=== PATIENT | female | born 1960 | race Caucasian/White ===

== ENCOUNTER 2024-07-14 00:01 | Emergency (ER) | payer OTHER ==
[2024-07-14] MEDS ORDERED: Ondansetron PF 4 MG/2 ML Vial ONE (00:33)
[2024-07-14] MEDS ORDERED: Morphine 4 MG/ML VIAL ONE (00:33)
[2024-07-14 00:39] LABS: #Basophils Less than 0.03 10x3/uL (0.0-0.2); #Eosinophils 0.09 10x3/uL (0.0-0.5); #Monocytes 0.68 10x3/uL (0.0-1.1); %Basophils 0.4 % (0.0-2.0); %Eosinophils 1.6 % (0.0-6.0); %Lymphocytes 15.9 % (18.0-47.0); %Monocytes 12.2 % (0.0-10.0); %Neutrophils 69.7 % (40.0-75.0); Hematocrit 35.9 % (34.9-44.5); Hemoglobin 11.8 g/dL (12.0-15.5); Mean Corpuscular HGB CONC 32.9 g/dL (32.0-36.0); Mean Corpuscular Hemoglobin 29.5 pg (27.0-33.0); Mean Corpuscular Volume 89.8 fL (81.6-98.3); Mean Platelet Volume 10.9 fL (7.4-10.4); Platelet Count 213 10x3/uL (150-450); RBC Distribution Width 12.9 % (11.5-14.5); White Blood Cell (WBC) Count 5.59 10x3/uL (3.5-10.5)
[2024-07-14 00:50] LABS: ALT (SGPT) 87 U/L (8-55); AST (SGOT) 105 U/L (5-34); Albumin 3.8 g/dL (3.4-4.8); Alkaline Phosphatase 168 U/L (40-110); Anion Gap 13 mmol/L (10-20); BUN (Urea Nitrogen) 18 mg/dL (9.8-20.1); Bilirubin, Total 0.3 mg/dL (0.2-1.2); Calc. Creatinine Clearance 0 mL/min (70-130); Calcium 9.8 mg/dL (7.8-10.44); Carbon Dioxide 25 mmol/L (23-31); Chloride 102 mmol/L (98-107); Estimated GFR 58; Globulin 2.9 g/dL (2.4-3.5); Glucose 161 mg/dL (80-115); Protein, Total 6.7 g/dL (5.8-8.1); Sodium 136 mmol/L (136-145)
[2024-07-14 00:54] LABS: Troponin I Less than 0.010 ng/mL (< 0.028)
[2024-07-14] MEDS ORDERED: Lidocaine Viscous Sol 2% 15 ml UD Cup ONE (02:01)
[2024-07-14] MEDS ORDERED: Mag-Al 1200 mg/1200 mg/30 ML UDCUP ONE (02:01)
[2024-07-14 02:40] LABS: Troponin I Less than 0.010 ng/mL (< 0.028)
[2024-07-14 09:37] LABS: HBsAg Index 1.25 S/CO (0-0.99)
[2024-07-14 13:25] LABS: Hep A IgM AB NONREACTIVE (NonReactive); Hep A IgM S/CO 0.19 S/CO (0-0.79); Hep B Core IgM Index 0.06 S/CO (0-0.79); Hep C IgG Ab NONREACTIVE S/CO (NonReactive); Hep C Index 0.11 S/CO (0-0.79); Hepatitis B Core IgM Abs NONREACTIVE S/CO (NonReactive)
== END 2024-07-14 02:56 | disposition home or self-care (01) ==
LOC: CSHERS 00:01
DX: R10.13 Epigastric pain (principal); R07.2 Precordial pain; I10 Essential (primary) hypertension; E03.9 Hypothyroidism, unspecified; Z79.890 Hormone replacement therapy
CPT/HCPCS: 71045; 76705; 80053; 80074; 84484; 85025; 93005; 96374; 96375; J2270; J2405